=== PATIENT | female | born 1950 | race Caucasian/White ===

== ENCOUNTER 2018-12-21 15:39 | Emergency (ER) | payer MEDICARE ==
[~2018-12-21] VITALS: Ht 165.1 cm; Wt 65.8 kg
[2018-12-21] MEDS ORDERED: LIDOCAINE 1% PF 30 ML VIAL. INJ ONE (16:00)
--- NOTE | 2018-12-21 16:00 | PHYS DOC ---
Adult General Chief Complaint Chief Complaint: LACERATION/AVULSION HPI HPI Patient is a 68 year old female who presents with left hand laceration, patient states she was cutting a tree that was tied on a rope when the tree limb broke loose and the rope pulled her. Patient denies they leave falling on her. Denies any loss of consciousness. Review of Systems Review of Systems Constitutional: Denies fever or chills [] Eyes: Denies change in visual acuity, redness, or eye pain [] HENT: Denies nasal congestion or sore throat [] Respiratory: Denies cough or shortness of breath [] Cardiovascular: No additional information not addressed in HPI [] GI: Denies abdominal pain, nausea, vomiting, bloody stools or diarrhea [] : Denies dysuria or hematuria [] Musculoskeletal: Denies back pain or joint pain [] Integument: Reports left hand laceration. Reports left armpit bruising and right wrist bruising. Neurologic: Denies headache, focal weakness or sensory changes [] All other systems were reviewed and found to be within normal limits, except as documented in this note. Current Medications Current Medications Current Medications Medications (Trade) Dose Ordered Sig/Digna Start Time Stop Time Status Last Admin Dose Admin Clindamycin Phosphate 50 ml @ 100 mls/hr 1X ONCE 12/21/18 17:15 12/21/18 17:44 DC 12/21/18 17:21 100 MLS/HR Diphtheria/ Tetanus/Acell Pertussis (Boostrix) 0.5 ml ONCE ONCE 12/21/18 16:15 12/21/18 16:16 DC 12/21/18 16:24 0.5 ML Hydromorphone HCl (Dilaudid) 1 mg 1X ONCE 12/21/18 17:00 12/21/18 17:01 DC 12/21/18 17:08 1 MG Lidocaine HCl (Lidocaine 1% 20ml Vial) 20 ml ONCE ONCE 12/21/18 16:00 12/21/18 16:01 DC 12/21/18 16:25 20 ML Lidocaine HCl (Xylocaine 1% Pf 30ml Vial) 30 ml 1X ONCE 12/21/18 16:00 12/21/18 16:01 Cancel Morphine Sulfate (Morphine Sulfate) 5 mg 1X ONCE 12/21/18 16:00 12/21/18 16:01 DC 12/21/18 16:25 5 MG Ondansetron HCl (Zofran Odt) 4 mg 1X ONCE 12/21/18 16:00 12/21/18 16:01 DC 12/21/18 16:25 4 MG Allergies Allergies Allergies Coded Allergies Type Severity Reaction Last Updated Verified Penicillins Allergy Unknown 12/21/18 Yes Physical Exam Physical Exam Constitutional: Well developed, well nourished, no acute distress, non-toxic appearance. [] HENT: Normocephalic, atraumatic, bilateral external ears normal, oropharynx moist, no oral exudates, nose normal. [] Eyes: PERRLA, EOMI, conjunctiva normal, no discharge. [] Neck: Normal range of motion, no tenderness, supple, no stridor. [] Cardiovascular:Heart rate regular rhythm, no murmur [] Lungs & Thorax: Bilateral breath sounds clear to auscultation [] Abdomen: Bowel sounds normal, soft, no tenderness, no masses, no pulsatile masses. [] Skin: Left index finger is obviously deformed. Left hand dorsal aspect along the index finger metacarpal with a laceration approximately 3 cm long there is no obvious tendon involvement there is also another laceration approx. 2 cm along the middle finger metacarpal. Limited ROM to the left fingers due to pain and injury especially index finger and middle finger. Adequate radial, medial, ulnar sensation to the left hand. Cap refill less than 2 seconds and left fin gers. Bruising noted on the left armpit. Bruising also noted on the ventral aspect of the right wrist, full range of motion to the right wrist and fingers. Adequate radial, medial, ulnar sensation to the right hand. Cap refill less than 2 seconds the right fingers. Back: No tenderness, no CVA tenderness. [] Extremities: No tenderness, no cyanosis, no clubbing, ROM intact, no edema. [] Neurologic: Alert and oriented X 3, normal motor function, normal sensory function, no focal deficits noted. [] Psychologic: Affect normal, judgement normal, mood normal. [] Current Patient Data Vital Signs Vital Signs Date Time Temp Pulse Resp B/P (MAP) Pulse Ox O2 Delivery O2 Flow Rate FiO2 12/21/18 18:10 64 20 156/70 (98) 93 Room Air 12/21/18 15:55 98.4 98.4 EKG EKG [] Radiology/Procedures Radiology/Procedures []PROCEDURE: HAND LEFT 3V Left shoulder AP and scapular x-rays 3 views HISTORY: Fall, left shoulder pain and limited range of motion. FINDINGS: No fracture or dislocation. The soft tissues are unremarkable. IMPRESSION: No acute osseous injury of the left shoulder. Left hand x-rays 3 views HISTORY: Fall, left hand laceration, injury. FINDINGS: There is a comminuted traumatic fracture with blowout of fracture fragments of the second metacarpal head and distal shaft which could be an open fracture given surrounding soft tissue emphysema. There is also a nondisplaced comminuted fracture of the base of the second proximal phalanx at the MCP joint. There is also a transverse oriented acute traumatic fracture of the first metacarpal head near the MCP joint, as well as a transverse acute traumatic fracture of the head of the thumb first proximal phalanx on the lateral view. There is also a fracture of the trapezium and distal radius at the wrist. No dislocation evident. IMPRESSION: Acute traumatic fractures of the left second proximal phalanx, second metacarpal, first metacarpal, first proximal phalanx and the trapezium and distal radius at the wrist. Right wrist x-rays 3 views HISTORY: Fall, injury. Bruising and swelling and pain. FINDINGS: No acute traumatic fracture or dislocation at the wrist. There is a small well-corticated chronic appearing ossicle on the AP view adjacent of the triquetrum. IMPRESSION: No acute osseous injury. Electronically signed by: Rishi Lee MD (12/21/2018 4:39 PM) [facility] DICTATED and SIGNED BY: RISHI LEE MD DATE: 12/21/18 0001 Course & Med Decision Making Course & Med Decision Making Pertinent Labs and Imaging studies reviewed. (See chart for details) This is a 68-year-old female patient presenting to the ED today with left hand lacerations, bruising to the left armpit, bruising to the right wrist, patient was involved in an accident, she was cutting a tree limbs when the limb broke lose and the rope pulled her. Left hand x-rays interpreted by radiologist -Acute traumatic fractures of the left second proximal phalanx,second metacarpal, first metacarpal, first proximal phalanx and the trapezium and distal radius at the wrist. Laceration sites were cleaned. Nonstick dressing applied to the areas. Tetanus updated. Patient was placed in a splint by the landfill gas technician, neurovascular exam done by me post splinting is normal. Patient accepted at [facility] by Dr.Endress Harmon Disclaimer [place] Disclaimer This electronic medical record was generated, in whole or in part, using a voice recognition dictation system. Departure Departure Impression: Primary Impression: Distal radius fracture Additional Impressions: Open metacarpal fracture Trapezium fracture Proximal phalanx fracture of finger Disposition: 05 TRANSFER OTHER Condition: STABLE Referrals: GENESIS WOODS MD (PCP) Problem Qualifiers Primary Impression: Distal radius fracture Encounter type: initial encounter Fracture type: open Open fracture type: open type III Fracture morphology: other fracture Laterality: left Qualified Codes: S52.592C - Other fractures of lower end of left radius, initial encounter for open fracture type IIIA, IIIB, or IIIC Additional Impressions: Open metacarpal fracture Encounter type: initial encounter Metacarpal bone: second Metacarpal location: unspecified portion of metacarpal Fracture alignment: nondisplaced Laterality: left Qualified Codes: S62.301B - Unspecified fracture of second metacarpal bone, left hand, initial encounter for open fracture Trapezium fracture Encounter type: initial encounter Fracture type: open Fracture alignment: nondisplaced Laterality: left Qualified Codes: S62.175B - Nondisplaced fracture of trapezium [larger multangular], left wrist, initial encounter for open fracture Proximal phalanx fracture of finger Encounter type: initial encounter Finger: index finger Fracture type: open Fracture alignment: nondisplaced Laterality: left Qualified Codes: S62.641B - Nondisplaced fracture of proximal phalanx of left index finger, initial encounter for open fracture MAGGIE LORENZO APRN Dec 21, 2018 16:00
[2018-12-21] MEDS: DIPHTH,PERTUSS(ACELL),TET TOX 0.5 ML DISP.SYRIN. VAX IM ONE (16:24)
[2018-12-21] MEDS: LIDOCAINE 1% Multi-Dose 20 ML VIAL. INJ ONE (16:25)
[2018-12-21] MEDS: ONDANSETRON ODT 4 MG TAB.RAPDIS. PO ONE (16:25)
[2018-12-21] MEDS: MORPHINE SULFATE 10 MG/ML VIAL. IM ONE (16:25)
--- NOTE | 2018-12-21 16:42 | RAD ---
Left shoulder AP and scapular x-rays 3 views HISTORY: Fall, left shoulder pain and limited range of motion. FINDINGS: No fracture or dislocation. The soft tissues are unremarkable. IMPRESSION: No acute osseous injury of the left shoulder. Left hand x-rays 3 views HISTORY: Fall, left hand laceration, injury. FINDINGS: There is a comminuted traumatic fracture with blowout of fracture fragments of the second metacarpal head and distal shaft which could be an open fracture given surrounding soft tissue emphysema. There is also a nondisplaced comminuted fracture of the base of the second proximal phalanx at the MCP joint. There is also a transverse oriented acute traumatic fracture of the first metacarpal head near the MCP joint, as well as a transverse acute traumatic fracture of the head of the thumb first proximal phalanx on the lateral view. There is also a fracture of the trapezium and distal radius at the wrist. No dislocation evident. IMPRESSION: Acute traumatic fractures of the left second proximal phalanx, second metacarpal, first metacarpal, first proximal phalanx and the trapezium and distal radius at the wrist. Right wrist x-rays 3 views HISTORY: Fall, injury. Bruising and swelling and pain. FINDINGS: No acute traumatic fracture or dislocation at the wrist. There is a small well-corticated chronic appearing ossicle on the AP view adjacent of the triquetrum. IMPRESSION: No acute osseous injury. Electronically signed by: Jose Lee MD (12/21/2018 4:39 PM) [facility]
[2018-12-21] MEDS: HYDROmorphone 2 MG/ML VIAL IM ONE (17:08)
[2018-12-21] MEDS: CLINDAMYCIN 900MG PREMIX 50 ML IV ONE (17:21)
[2018-12-21 19:25] VITALS: BP 161/69
== END 2018-12-21 19:30 | disposition short-term general hospital (02) ==
LOC: ER 15:39
DX: S52.592 Other fractures of lower end of left radius (principal); S62.301B Unspecified fracture of second metacarpal bone, left hand, initial encounter for open fracture; S62.17 Fracture of trapezium [larger multangular]; S62.641B Nondisplaced fracture of proximal phalanx of left index finger, initial encounter for open fracture; Z88.0 Allergy status to penicillin; X50.0XXA Overexertion from strenuous movement or load, initial encounter; Y93.89 Activity, other specified; Y92.89 Other specified places as the place of occurrence of the external cause; Y99.8 Other external cause status
CPT/HCPCS: 29125; 73030; 73110; 73130; 90471; 90715; 96365; 96372; 99285; J1170; J2270; J3490; Q0162